=== PATIENT | female | born 1970 | race Caucasian/White ===

== ENCOUNTER 2017-06-29 13:25 | Emergency (ER) | payer OTHER ==
--- NOTE | 2017-06-29 13:46 | EDPHY ---
H & P Stated Complaint: tripped in stream hitting l knee on rock/deformity Time Seen by Provider: 06/29/17 13:45 - Personal History LMP (Females 10-55): 15-21 Days Ago Current Tetanus/Diphtheria Vaccine: Yes - Medical/Surgical History Hx Asthma: No Hx Chronic Respiratory Disease: No Hx Diabetes: No Hx Cardiac Disease: No Hx Renal Disease: No Hx Cirrhosis: No Hx Alcoholism: No Hx HIV/AIDS: No Hx Splenectomy or Spleen Trauma: No Other PMH: r shoulder surghep c - Social History Smoking Status: Current some day smoker Constitutional: Initial Vital Signs Temperature (C) 36.8 C 06/29/17 13:33 Heart Rate 75 06/29/17 13:33 Respiratory Rate 17 06/29/17 13:33 Blood Pressure 115/67 06/29/17 13:33 O2 Sat (%) 96 06/29/17 13:33 O2 Delivery Mode Room Air Allergies/Adverse Reactions: codeine Allergy (Verified 06/29/17 13:32) Home Medications: Medication Instructions Recorded Adderall 10 MG (*) 06/29/17 LaMICtal 06/29/17 Medical Decision Making ED Course/Re-evaluation: CHIEF COMPLAINT: Left leg pain HISTORY OF PRESENT ILLNESS: 46-year-old female who is healthy. She was crossing a stream and slipped on a rock and fell onto her left knee. no other injury. Hurts to walk. REVIEW OF SYSTEMS: A 10 point review of systems was performed and is negative with the exception of the elements mentioned in the history of present illness. PHYSICAL EXAM: HR, BP, O2 Sat, RR. Temp noted General Appearance: Alert, well hydrated, appropriate, and non-toxic appearing. Head: Atraumatic without scalp tenderness or obvious injury Eyes: Pupils equal, round, reactive to light and accommodation, EOMI, no trauma , no injection. Ears: Clear bilaterally, no perforation, normal landmarks Nose: Atraumatic, no rhinorrhea, clear. Throat: There is no erythema or exudates, no lesions, normal tonsils, mucus membranes moist. Neck: Supple, 2+ carotid upstroke, nontender, no lymphadenopathy. Respiratory: No retractions, no distress, no wheezes, and no accessory muscle use. Lungs are clear to auscultation bilaterally. Cardiovascular: Regular rate and rhythm, no murmurs, rubs, or gallops. Bilateral carotid, radial, dorsalis pedis, and posterior tibial pulses intact. Good capillary refill all extremities. Gastrointestinal: Abdomen is soft, nontender, non-distended, no masses, no rebound, no guarding, no peritoneal signs. Musculoskeletal: Large swelling over the left tibial tuberosity. Otherwise, Normal active ROM of all extremities, atraumatic. Neurological: Alert, appropriate, and interactive. The patient has normal DTRs and non-focal cranial nerves, motor, sensory, and cerebellar exam. Skin: No rashes, good turgor, no nodules on palpation. Past medical history: Noncontributory Past surgical history: Noncontributory Family history: Noncontributory Social history: , visiting from out of state, does not abuse tobacco drugs or alcohol DIAGNOSTICS/PROCEDURES/CRITICAL CARE TIME: Study: three views of the left knee Indication: trauma Results: After viewing the images myself on the PACS system. My interpretation of the images is: no acute osseous process she does have soft tissue swelling. The radiologist interpretation is pending at the time of this dictation. DIFFERENTIAL DIAGNOSIS: The differential diagnosis for the patient's trauma included but was not limited to intracranial injury, long bone and pelvic bone fractures, spinal injury, intra-abdominal injury, and intra-thoracic injury. MEDICAL DECISION MAKING: This patient does not have an acute osseous injury. She has significant soft tissue swelling over the tibial tuberosity. I will give her pain meds and crutches if needed. She will elevate and use ice and follow up with her primary care physician I expect this to resolve in the next couple days and make it slightly worse 1st explained everything to the patient and her . Departure - Departure Disposition: Home, Routine, Self-Care Clinical Impression: Knee contusion Qualifiers: Encounter type: initial encounter Laterality: left Qualified Code(s): S80.02XA - Contusion of left knee, initial encounter Condition: Good Instructions: Knee Pain (ED), Contusion in Adults (ED) Additional Instructions: Ice, elevation, follow up with regular physician Referrals: NONE *PRIMARY CARE P,. [Primary Care Provider] - As per Instructions
[2017-06-29 14:49] VITALS: BP 110/60; PULSE 73; RESP 16; TEMP 98.1; O2SAT 94
== END 2017-06-29 14:48 | disposition home or self-care (01) ==
DX: S80.02XA Contusion of left knee, initial encounter (principal); F17.200 Nicotine dependence, unspecified, uncomplicated; W01.0XXA Fall on same level from slipping, tripping and stumbling without subsequent striking against object, initial encounter; Y99.8 Other external cause status